=== PATIENT | male | born 1985 | race Two or more races ===

== ENCOUNTER 2016-10-30 22:31 | Emergency (ER) | payer OTHER ==
[~2016-10-30] VITALS: Ht 190.5 cm; Wt 64.0 kg
[2016-10-30 23:00] VITALS: BP 119/84
== END 2016-10-31 01:15 | disposition left against medical advice (07) ==
LOC: ER 22:35
DX: Z53.21 Procedure and treatment not carried out due to patient leaving prior to being seen by health care provider (principal)
CPT/HCPCS: A4606; Z7610

== ENCOUNTER 2017-02-12 22:58 | Emergency (ER) | payer OTHER ==
[~2017-02-12] VITALS: Ht 193 cm; Wt 90.7 kg
--- NOTE | 2017-02-13 01:24 | NUR ---
PT AMBUALTORY TO ER BED 7, BIBSELF, PT STATES "CP ON AND OFF SINCE AFTERNOON" RR EVEN AND UNLABORED. NO SOB NOTED. NAD NOTED. NO NVD AT THIS TIME. PT NOT DIAPHORETIC. PT GOWNED AND PLACED ON MONITOR WAITING FOR MD STALLINGS.
--- NOTE | 2017-02-13 01:41 | NUR ---
DR. ANTUNEZ AT BEDSIDE FOR EVAL.
--- NOTE | 2017-02-13 02:09 | NUR ---
LAB AT BEDSIDE FOR BLOOD DRAW
[2017-02-13 02:33] LABS: BASOPHILS % (AUTO) 0.6 % (0.0-2.0); EOSINOPHILS # (AUTO) 0.3 /CMM (0.0-0.7); EOSINOPHILS % (AUTO) 4.5 % (0.0-6.0); HEMATOCRIT 46 % (39-51); HEMOGLOBIN 15.8 g/dL (13.5-17.5); LYMPHOCYTES # (AUTO) 2.9 /CMM (0.8-4.8); LYMPHOCYTES % (AUTO) 39.2 % (20.0-44.0); MEAN CORPUSCULAR HEMOGLOBIN 31 PG (26.0-33.0); MEAN CORPUSCULAR HGB CONC 34 g/dl (31.0-36.0); MEAN CORPUSCULAR VOLUME 91 fL (80-96); MONOCYTES # (AUTO) 0.6 /CMM (0.1-1.30); MONOCYTES % (AUTO) 8.7 % (2.0-12.0); NEUTROPHILS # (AUTO) 3.5 /CMM (1.8-8.9); PLATELET COUNT (AUTO) 243 /CMM (150-450); RDW COEFFICIENT OF VARIATION 12.8 (11.5-15.0); RED BLOOD CELL COUNT(AUTO) 5.05 MIL/uL (4.5-6.0); WHITE BLOOD COUNT (AUTO) 7.5 K/uL (4.3-11.0)
--- NOTE | 2017-02-13 02:33 | NUR ---
XRAY AT BEDSIDE
[2017-02-13 02:41] LABS: CARBON DIOXIDE 30 mmol/L (21-32); CHLORIDE 105 mmol/L (98-107); CREATININE 0.9 mg/dL (0.6-1.3); GFR 98 mL/min (>60); GLUCOSE 99 mg/dL (74-106); POTASSIUM 4.6 mmol/L (3.5-5.1); SODIUM SERUM 142 mmol/L (136-145); UREA NITROGEN, BLOOD 13 mg/dL (7-18)
[2017-02-13 02:48] LABS: TROPONIN I < 0.017 ng/mL (0.00-0.056)
--- NOTE | 2017-02-13 04:16 | NUR ---
CALLED RADIOLOGY FOR CD
--- NOTE | 2017-02-13 04:28 | NUR ---
Patient discharged to home in stable condition. Written and verbal after care instructions given. Patient verbalizes understanding of instruction. PT REC'D A COPY OF THE IMAGING DISK. PT AMBULATED OUT WITH A STEADY GAIT. RESP EVEN AND UNLABORED. NO S/S OF PAIN OR DISTRESS. VSS.
[2017-02-13 04:39] VITALS: BP 126/82
== END 2017-02-13 04:40 | disposition home or self-care (01) ==
LOC: ER 23:00
DX: R07.89 Other chest pain (principal); F10.20 Alcohol dependence, uncomplicated; F17.210 Nicotine dependence, cigarettes, uncomplicated
CPT/HCPCS: 36415; 71010-TC; 80048-TC; 84484-TC; 85025-TC; A4606; Z7610

== ENCOUNTER 2017-04-06 17:49 | Emergency (ER) | payer OTHER ==
[~2017-04-06] VITALS: Ht 190.5 cm; Wt 64.0 kg
--- NOTE | 2017-04-06 18:00 | NUR ---
PT BIB FAMILY C/O DIFFUSE ABD PAIN XTODAY S/P EATING "JUNK FROM 7-11". DENIES N/V/D. RESP EVEN UNLABORED. SKIN WARM NONDIAPHORETIC. DENIES URINARY SYMPTOMS. NAD NOTED. IN ER BED 12.
[2017-04-06] MEDS ORDERED: PANTOPRAZOLE 40 MG VIAL ONE (18:08)
[2017-04-06] MEDS ORDERED: ONDANSETRON HCL/PF 4 MG/2 ML VIAL ONE (18:09)
[2017-04-06] MEDS ORDERED: MORPHINE SULFATE INJ 4 MG/ML DISP.SYRIN ONE (18:09)
[2017-04-06 18:14] LABS: BASOPHILS # (AUTO) 0.1 /CMM (0.0-0.2); BASOPHILS % (AUTO) 1.2 % (0.0-2.0); EOSINOPHILS # (AUTO) 0.4 /CMM (0.0-0.7); EOSINOPHILS % (AUTO) 4.1 % (0.0-6.0); HEMATOCRIT 45 % (39-51); HEMOGLOBIN 15.3 g/dL (13.5-17.5); LYMPHOCYTES # (AUTO) 3.4 /CMM (0.8-4.8); LYMPHOCYTES % (AUTO) 36.9 % (20.0-44.0); MEAN CORPUSCULAR HEMOGLOBIN 31 PG (26.0-33.0); MEAN CORPUSCULAR HGB CONC 34 g/dl (31.0-36.0); MEAN CORPUSCULAR VOLUME 93 fL (80-96); MONOCYTES # (AUTO) 0.8 /CMM (0.1-1.30); MONOCYTES % (AUTO) 8.5 % (2.0-12.0); NEUTROPHILS # (AUTO) 4.6 /CMM (1.8-8.9); NEUTROPHILS % (AUTO) 49.3 % (43.0-81.0); PLATELET COUNT (AUTO) 262 /CMM (150-450); RDW COEFFICIENT OF VARIATION 11.9 (11.5-15.0); WHITE BLOOD COUNT (AUTO) 9.3 K/uL (4.3-11.0)
[2017-04-06 18:22] LABS: CALCIUM, SERUM 8.7 mg/dL (8.5-10.1); CREATININE 0.8 mg/dL (0.6-1.3); POTASSIUM 3.5 mmol/L (3.5-5.1)
[2017-04-06] MEDS ORDERED: PANTOPRAZOLE 40 MG VIAL IV ONE (18:30)
[2017-04-06] MEDS ORDERED: ONDANSETRON HCL/PF 4 MG/2 ML VIAL IVP ONE (18:30)
[2017-04-06] MEDS ORDERED: MORPHINE SULFATE INJ 2 MG/ML DISP.SYRIN IV ONE (18:30)
[2017-04-06] MEDS ORDERED: IV NS 0.9% 1,000 ML BAG IV ONE (18:30)
[2017-04-06 18:33] LABS: ALBUMIN 4.2 g/dL (3.4-5.0); BILIRUBIN,DIRECT 0.1 mg/dL (0.0-0.2); BILIRUBIN,TOTAL 0.2 mg/dL (0.2-1.0); TOTAL PROTEIN, SERUM 7.5 g/dL (6.4-8.2)
--- NOTE | 2017-04-06 18:38 | NUR ---
CALLED RADIOLOGY FOR ULTRASOUND
--- NOTE | 2017-04-06 19:00 | NUR ---
REPORTS ADEQUATE PAIN RELIEF WITH MEDICATION ORDERED
--- NOTE | 2017-04-06 20:44 | NUR ---
IV removed. Catheter intact and site benign. Pressure and 4x4 applied to site. No bleeding noted. Patient discharged to home in stable condition. Written and verbal after care instructions given. Patient verbalizes understanding of instruction. AMBULATORY WITH STEADY GAIT.
[2017-04-06 20:45] VITALS: BP 130/62
== END 2017-04-06 20:45 | disposition home or self-care (01) ==
LOC: ER 17:50
DX: R10.84 Generalized abdominal pain (principal); F17.200 Nicotine dependence, unspecified, uncomplicated
CPT/HCPCS: 36415; 76705; 80048; 80076; 83690; 85025; 96361; 96374; 96375; 99285; A4606; C9113; J2270; J2405; J7030 ×2; Z7610

== ENCOUNTER 2017-10-11 19:23 | Emergency (ER) | payer OTHER ==
[~2017-10-11] VITALS: Ht 182.9 cm; Wt 86.2 kg
[2017-10-11 19:31] VITALS: BP 155/78
[2017-10-11] MEDS: IBUPROFEN 600 MG TABLET PO ONE (22:40)
[2017-10-11] MEDS ORDERED: IBUPROFEN 600 MG TABLET PO ONE (22:40)
== END 2017-10-11 23:01 | disposition home or self-care (01) ==
LOC: ER 19:23
DX: M79.604 Pain in right leg (principal); M25.561 Pain in right knee; F17.200 Nicotine dependence, unspecified, uncomplicated
CPT/HCPCS: 73564-TC; 73610-TC; 93971-TC; A4606; Z7610

== ENCOUNTER 2017-11-19 11:48 | Emergency (ER) | payer OTHER ==
[~2017-11-19] VITALS: Ht 193 cm; Wt 93.9 kg
[2017-11-19 11:48] VITALS: BP 130/90
[2017-11-19] MEDS ORDERED: KETOROLAC TROMETHAMINE INJ 60 MG/2 ML VIAL IM ONE (13:00)
== END 2017-11-19 12:55 | disposition home or self-care (01) ==
LOC: ER 11:51
DX: M54.2 Cervicalgia (principal); M62.838 Other muscle spasm; F17.200 Nicotine dependence, unspecified, uncomplicated; F10.10 Alcohol abuse, uncomplicated
CPT/HCPCS: 99283; 99406; A4606; Z7610

== ENCOUNTER 2018-10-02 03:40 | Emergency (ER) | payer OTHER ==
[~2018-10-02] VITALS: Ht 190.5 cm; Wt 72.6 kg
--- NOTE | 2018-10-02 04:30 | NUR ---
PT PRESENTED TO THE ER WITH A C/O BLE PAIN. PT AMBULATED TO ER BED #3 WITH A SLOW LIMP. PT IS AA&O X4. PT'S IS AT THE BEDSIDE.
--- NOTE | 2018-10-02 04:56 | NUR ---
US TECH IS AT THE BEDSIDE.
[2018-10-02] MEDS ORDERED: IBUPROFEN 400 MG TABLET PO ONE (05:00)
[2018-10-02] MEDS ORDERED: IBUPROFEN 400 MG TABLET ONE (05:05)
[2018-10-02 05:23] LABS: BASOPHILS % (AUTO) 0.5 % (0.0-2.0); EOSINOPHILS % (AUTO) 2.7 % (0.0-6.0); HEMATOCRIT 48 % (39-51); HEMOGLOBIN 16.5 g/dL (13.5-17.5); LYMPHOCYTES # (AUTO) 2.9 /CMM (0.8-4.8); LYMPHOCYTES % (AUTO) 36.1 % (20.0-44.0); MEAN CORPUSCULAR HGB CONC 35 g/dl (31.0-36.0); MEAN CORPUSCULAR VOLUME 95 fL (80-96); MONOCYTES # (AUTO) 0.7 /CMM (0.1-1.30); MONOCYTES % (AUTO) 9.4 % (2.0-12.0); NEUTROPHILS # (AUTO) 4.1 /CMM (1.8-8.9); NEUTROPHILS % (AUTO) 51.3 % (43.0-81.0); PLATELET COUNT (AUTO) 245 /CMM (150-450); WHITE BLOOD COUNT (AUTO) 7.9 K/uL (4.3-11.0)
[2018-10-02 05:25] LABS: CREATININE 0.8 mg/dL (0.6-1.3); POTASSIUM 4.5 mmol/L (3.5-5.1)
--- NOTE | 2018-10-02 06:40 | NUR ---
Patient discharged to home in stable condition. Written and verbal after care instructions given. Patient verbalizes understanding of instruction AND RX. PT AMBULATED OUT WITH A SLOW STEADY GAIT. VSS.
[2018-10-02 07:05] VITALS: BP 116/75
== END 2018-10-02 06:40 | disposition home or self-care (01) ==
LOC: ER 03:44
DX: M79.604 Pain in right leg (principal); M79.605 Pain in left leg
CPT/HCPCS: 36415; 80048; 85025; 85610; 93970; 99284; A4606; Z7610

== ENCOUNTER 2019-07-31 21:50 | Emergency (ER) | payer OTHER ==
[~2019-07-31] VITALS: Ht 193 cm; Wt 95.7 kg
[2019-07-31 22:25] VITALS: BP 123/81
[2019-07-31] MEDS ORDERED: KETOROLAC TROMETHAMINE INJ 60 MG/2 ML VIAL IM ONE ×2 (23:00→23:10)
[2019-07-31] MEDS ORDERED: PENICILLIN G BENZATHINE 2.4 MMU/4 ML ML IM ONE ×2 (23:00→23:11)
[2019-07-31] MEDS ORDERED: DEXAMETHASONE SOD PHOSPHATE 10 MG/ML VIAL IM ONE (23:00)
[2019-07-31] MEDS ORDERED: DEXAMETHASONE SOD PHOSPHATE 10 MG/ML VIAL ONE (23:10)
--- NOTE | 2019-08-01 00:03 | NUR ---
Patient discharged to home in stable condition. Rx and Written and verbal after care instructions given. Patient verbalizes understanding of instruction. no A/R to ATB noted.
== END 2019-08-01 00:20 | disposition home or self-care (01) ==
LOC: ER 21:53
DX: J02.9 Acute pharyngitis, unspecified (principal); F10.10 Alcohol abuse, uncomplicated; F17.200 Nicotine dependence, unspecified, uncomplicated; Y90.9 Presence of alcohol in blood, level not specified
CPT/HCPCS: 96372 ×3; 99283; J0558; J1100; J1885

== ENCOUNTER 2019-08-01 23:04 | Emergency (ER) | payer OTHER ==
[~2019-08-01] VITALS: Ht 193 cm; Wt 96.6 kg
[2019-08-01 23:04] VITALS: BP 135/77
[2019-08-02] MEDS ORDERED: KETOROLAC TROMETHAMINE INJ 60 MG/2 ML VIAL IM ONE ×2 (00:09)
== END 2019-08-02 00:36 | disposition home or self-care (01) ==
LOC: ER 23:15
DX: J02.9 Acute pharyngitis, unspecified (principal); F10.10 Alcohol abuse, uncomplicated; F17.200 Nicotine dependence, unspecified, uncomplicated; Y90.9 Presence of alcohol in blood, level not specified
CPT/HCPCS: 96372; 99283; J1885

== ENCOUNTER 2020-08-17 12:03 | Emergency (ER) | payer OTHER ==
[~2020-08-17] VITALS: Ht 190.5 cm; Wt 94.8 kg
[2020-08-17 12:35] VITALS: BP 137/78
[2020-08-17] MEDS ORDERED: DIAZEPAM 5 MG TABLET PO ONE (13:00)
[2020-08-17] MEDS ORDERED: KETOROLAC TROMETHAMINE INJ 30 MG/ML VIAL IM ONE (13:00)
[2020-08-17] MEDS ORDERED: DIAZEPAM 5 MG TABLET ONE (13:01)
[2020-08-17] MEDS ORDERED: KETOROLAC TROMETHAMINE INJ 30 MG/ML VIAL ONE (13:01)
--- NOTE | 2020-08-17 13:18 | NUR ---
PATIENT AMBULATORY WITH STEADY GAIT. Patient discharged to home in stable condition. Written and verbal after care instructions given. Patient verbalizes understanding of instruction.
== END 2020-08-17 13:19 | disposition home or self-care (01) ==
LOC: ER 12:06
DX: M54.5 Low back pain (principal); F17.200 Nicotine dependence, unspecified, uncomplicated
CPT/HCPCS: 96372; 99283; J1885

== ENCOUNTER 2021-05-20 21:42 | Emergency (ER) | payer OTHER ==
--- NOTE | 2021-05-20 23:15 | NUR ---
CALLED - NO ANSWER
--- NOTE | 2021-05-20 23:21 | NUR ---
Patient left without being seen by ER Physician
[2021-05-21] MEDS ORDERED: CYCL10TA9 PO (03:34)
[2021-05-21] MEDS ORDERED: HYDR-4209 PO (03:34)
== END 2021-05-20 23:23 | disposition left against medical advice (07) ==
LOC: ER 21:46
DX: Z53.21 Procedure and treatment not carried out due to patient leaving prior to being seen by health care provider (principal)

== ENCOUNTER 2021-05-20 23:51 | Emergency (ER) | payer OTHER ==
[~2021-05-20] VITALS: Ht 188 cm; Wt 90.7 kg
--- NOTE | 2021-05-21 00:50 | NUR ---
PATIENT WAS BIB FOR C/O BILAT FLANK PAIN SINCE 9PM ACCOMPANIED BY DYSURIA AND HEMATURIA. PT IS AAO X 4, AMBULATORY, BREATHING IS EVEN AND UNLABORED, SATURATION 99% ON ROOM AIR. PT WAS EXAMINED BY DR SCHAEFFER. PT ATTACHED TO MONITOR AND PULSE OX. WILL CONTINUE TO MONITOR AND CARRY OUT MD ORDERS.
--- NOTE | 2021-05-21 01:00 | NUR ---
URINE COLLECTED AND SENT TO LAB
[2021-05-21] MEDS ORDERED: LORAZEPAM 1 MG TABLET PO ONE (01:30)
[2021-05-21] MEDS ORDERED: HYDROCODONE/APAP 10/325MG TABLET PO ONE (01:30)
[2021-05-21] MEDS ORDERED: ONDANSETRON 4 MG TAB.RAPDIS SL ONE (01:30)
[2021-05-21] MEDS ORDERED: LORAZEPAM 1 MG TABLET ONE (01:31)
[2021-05-21] MEDS ORDERED: ONDANSETRON 4 MG TAB.RAPDIS ONE (01:31)
[2021-05-21] MEDS ORDERED: HYDROCODONE/APAP 10/325MG TABLET ONE (01:31)
[2021-05-21 01:42] LABS: BILIRUBIN,URINE Negative (NEGATIVE); COLOR,URINE DARK YELLOW (YELLOW); LEUKOCYTE ESTERASE ,URINE Negative (NEGATIVE); NITRITE, URINE Negative (NEGATIVE); PH,URINE 5.5 (5.0-8.0); PROTEIN,URINE Negative (NEGATIVE); UGLUCOSE Negative (NEGATIVE); UROBILINOGEN,URINE 0.2 EU/dL (0.2)
--- NOTE | 2021-05-21 03:30 | NUR ---
DR SCHAEFFER AT BEDSIDE AND EXPLAINED LAB/XRAY RESULTS.
[2021-05-21] MEDS ORDERED: CYCL10TA9 PO (03:34)
[2021-05-21] MEDS ORDERED: HYDR-4209 PO (03:34)
--- NOTE | 2021-05-21 03:45 | NUR ---
Patient discharged to home in stable condition. Written and verbal after care instructions given. Patient verbalizes understanding of instruction. Patient is ambulatory with a steady gait
[2021-05-21 03:48] VITALS: BP 129/72
== END 2021-05-21 03:40 | disposition home or self-care (01) ==
LOC: ER 23:53
DX: M54.5 Low back pain (principal); F17.210 Nicotine dependence, cigarettes, uncomplicated; Z79.899 Other long term (current) drug therapy
CPT/HCPCS: 81003; 99284; Q0162

== ENCOUNTER 2021-08-09 21:46 | Emergency (ER) | payer OTHER ==
[~2021-08-09] VITALS: Ht 182.9 cm; Wt 83.9 kg
[~2021-08-09 21:46] MED LIST: CYCL10TA9 PO; HYDR-4209 PO
[2021-08-09 22:02] VITALS: BP 129/86
[2021-08-09] MEDS ORDERED: ONDA4TAB5 PO (22:26)
[2021-08-09] MEDS ORDERED: HYDR-4209 PO ×2 (22:26→22:27)
== END 2021-08-09 22:47 | disposition home or self-care (01) ==
LOC: EDUNIT# 21:46 → ER 21:48
DX: S00.83XA Contusion of other part of head, initial encounter (principal); F17.200 Nicotine dependence, unspecified, uncomplicated; Z79.899 Other long term (current) drug therapy; Y04.0XXA Assault by unarmed brawl or fight, initial encounter; Y93.89 Activity, other specified; Y92.89 Other specified places as the place of occurrence of the external cause; Y99.8 Other external cause status

== ENCOUNTER 2022-04-25 05:38 | Emergency (ER) | payer OTHER ==
[~2022-04-25] VITALS: Ht 185.4 cm; Wt 90.7 kg
[~2022-04-25 05:38] MED LIST changes: +ONDA4TAB5 PO
--- NOTE | 2022-04-25 06:29 | NUR ---
TO ER BED 9. BIBS. C/O R FLANK PAIN SINCE YESTERDAY. PT IS ALERT AND ORIENTED. BREATHING IS EVEN AND NONLABORED. CONNECTED TO MONITOR. AWAITING MD STALLINGS
[2022-04-25] MEDS ORDERED: KETOROLAC TROMETHAMINE INJ 30 MG/ML VIAL IV ONE (06:30)
[2022-04-25] MEDS ORDERED: IV NS 0.9% 1,000 ML BAG IV ONE (06:30)
[2022-04-25] MEDS ORDERED: ACETAMINOPHEN ES 500 MG TABLET PO ONE (06:30)
[2022-04-25] MEDS ORDERED: ACETAMINOPHEN ES 500 MG TABLET ONE (06:32)
[2022-04-25] MEDS ORDERED: KETOROLAC TROMETHAMINE 15 MG/ML VIAL ONE (06:32)
--- NOTE | 2022-04-25 06:37 | NUR ---
URINE SAMPLE COLLECTED AND SENT TO LAB
[2022-04-25 06:57] LABS: BASOPHILS % (AUTO) 0.5 % (0.0-2.0); EOSINOPHILS % (AUTO) 3.9 % (0.0-6.0); HEMATOCRIT 46 % (39-51); HEMOGLOBIN 15.9 g/dL (13.5-17.5); LYMPHOCYTES # (AUTO) 2.6 K/uL (0.8-4.8); LYMPHOCYTES % (AUTO) 33.5 % (20.0-44.0); MEAN CORPUSCULAR HGB CONC 35 g/dl (31.0-36.0); MEAN CORPUSCULAR VOLUME 92 fL (80-96); MONOCYTES # (AUTO) 0.7 K/uL (0.1-1.30); MONOCYTES % (AUTO) 9.1 % (2.0-12.0); NEUTROPHILS # (AUTO) 4.2 K/uL (1.8-8.9); PLATELET COUNT (AUTO) 244 K/uL (150-450); RED BLOOD CELL COUNT(AUTO) 4.99 MIL/uL (4.5-6.0); WHITE BLOOD COUNT (AUTO) 7.9 K/uL (4.3-11.0)
[2022-04-25 07:09] LABS: COLOR,URINE YELLOW (YELLOW); LEUKOCYTE ESTERASE ,URINE NEGATIVE (NEGATIVE); NITRITE, URINE NEGATIVE (NEGATIVE); PH,URINE 5.5 (5.0-8.0); PROTEIN,URINE NEGATIVE (NEGATIVE); UGLUCOSE NEGATIVE (NEGATIVE); UROBILINOGEN,URINE 0.2 EU/dL (0.2)
[2022-04-25 07:18] LABS: BILIRUBIN,URINE SMALL (NEGATIVE)
[2022-04-25 07:18] LABS: ALBUMIN 4.3 g/dL (3.4-5.0); BILIRUBIN,DIRECT 0.1 mg/dL (0.0-0.2); BILIRUBIN,TOTAL 0.3 mg/dL (0.2-1.0); CALCIUM, SERUM 8.8 mg/dL (8.5-10.1); CREATININE 0.8 mg/dL (0.6-1.3); POTASSIUM 4.2 mmol/L (3.5-5.1); TOTAL PROTEIN, SERUM 7.7 g/dL (6.4-8.2)
[2022-04-25 07:38] LABS: BACTERIA,URINE Rare /HPF (None Seen); RBC,URINE 0-2 /HPF (0-2); SQUAMOUS EPITHELIAL CELL,UR Few /HPF (None Seen)
[2022-04-25] MEDS ORDERED: CYCL5TAB PO (08:11)
[2022-04-25] MEDS ORDERED: IBUP-1955 PO (08:11)
[2022-04-25 08:25] VITALS: BP 120/67
--- NOTE | 2022-04-25 08:25 | NUR ---
The patient is alert and oriented x4. In room air and denies SOB. Respiration regular and unlabored. Denies pain. IV removed. Catheter intact and site benign. Pressure and 4x4 applied to site. No bleeding noted.Patient discharged to home in stable condition. Written and verbal after care instructions given. Patient verbalizes understanding of instruction.
== END 2022-04-25 08:26 | disposition home or self-care (01) ==
LOC: ER 06:16
DX: M54.50 Low back pain, unspecified (principal); Z79.899 Other long term (current) drug therapy
CPT/HCPCS: 99284; 74176; 96374; 96361; 85025; 80048; 83690; 80076; 81001; 36415; J7030; J1885

== ENCOUNTER 2022-10-14 06:08 | Emergency (ER) | payer OTHER ==
[~2022-10-14] VITALS: Ht 193 cm; Wt 95.3 kg
[~2022-10-14 06:08] MED LIST changes: -CYCL10TA9 PO; +CYCL5TAB PO; -HYDR-4209 PO; +IBUP-1955 PO; -ONDA4TAB5 PO
--- NOTE | 2022-10-14 06:19 | NUR ---
BIBS C/O BILATERAL LEG PAIN X2 DAYS. NO TRUAMA NOTED. PT A/OX4. TOLERATING R/A WELL NO RESP DISTRESS
[2022-10-14] MEDS ORDERED: KETOROLAC TROMETHAMINE INJ 30 MG/ML VIAL IM ONE (06:30)
[2022-10-14] MEDS ORDERED: KETOROLAC TROMETHAMINE INJ 30 MG/ML VIAL ONE (06:31)
[2022-10-14] MEDS ORDERED: NAPR-1164 PO (06:39)
--- NOTE | 2022-10-14 07:21 | NUR ---
Patient discharged to home in stable condition. Written and verbal after care instructions given. Patient verbalizes understanding of instruction. PT ambulatory with a steady gait
[2022-10-14 07:22] VITALS: BP 135/78
== END 2022-10-14 07:22 | disposition home or self-care (01) ==
LOC: ER 06:08
DX: M79.651 Pain in right thigh (principal); M79.652 Pain in left thigh; F17.200 Nicotine dependence, unspecified, uncomplicated; Z79.899 Other long term (current) drug therapy
CPT/HCPCS: 99283; 96372; J1885

== ENCOUNTER 2023-04-24 00:50 | Emergency (ER) | payer OTHER ==
[~2023-04-24] VITALS: Ht 188 cm; Wt 99.8 kg
[~2023-04-24 00:50] MED LIST changes: +NAPR-1164 PO
[2023-04-24] MEDS ORDERED: IBUPROFEN 400 MG TABLET ONE (02:19)
[2023-04-24] MEDS ORDERED: IBUPROFEN 400 MG TABLET PO ONE (02:30)
[2023-04-24 06:10] VITALS: BP 140/89; TEMP 98; O2SAT 98
== END 2023-04-24 06:10 | disposition home or self-care (01) ==
LOC: ER 00:55
DX: M79.18 Myalgia, other site (principal); F17.200 Nicotine dependence, unspecified, uncomplicated; Z79.899 Other long term (current) drug therapy
CPT/HCPCS: 99283; 72110; A4223